=== PATIENT | male | born 1960 | race African-American/Black ===

== ENCOUNTER 2019-08-21 11:45 | Emergency (ER) | payer OTHER | END 2019-08-21 12:37 | disposition home or self-care (01) | LOC: JERFT 11:45 | DX: R07.0 Pain in throat (principal) | CPT/HCPCS: 99283-25 ==

== ENCOUNTER 2021-01-01 12:36 | Inpatient (IN) | payer OTHER ==
[2021-01-01] MEDS ORDERED: CLINDAMYCIN 600MG PREMIX IVPB 600 MG/50 ML BAG IVPB ONE ×2 (13:16→13:48)
[2021-01-01] MEDS ORDERED: DEXAMETHASONE SOD PHOSPHATE 10 MG/1 ML VIAL IVPUSH ONE (13:52)
[2021-01-01] MEDS ORDERED: DEXAMETHASONE SOD PHOSPHATE 10 MG/1 ML VIAL ONE (14:37)
[2021-01-01] MEDS ORDERED: KETOROLAC TROMETHAMINE 30 MG/1 ML VIAL IVPUSH ONE (15:01)
[2021-01-01] MEDS ORDERED: KETOROLAC TROMETHAMINE 30 MG/1 ML VIAL ONE (15:03)
[2021-01-01 15:11] LABS: ALK PHOS 110 U/L (45-117); ANION GAP 10 MMOL/L (8-16); BILIRUBIN,TOTAL 0.7 mg/dL (0.2-1); BLOOD UREA NITROGEN 12.2 mg/dL (7-18); CALCIUM 8.7 mg/dL (8.5-10.1); CHLORIDE 104 mmol/L (98-107); CO2 23 mmol/L (21-32); CREATININE 1.4 mg/dL (0.55-1.3); GLUCOSE,RANDOM 135 mg/dL (74-106); SGOT/AST 33 U/L (15-37); SGPT/ALT 41 U/L (13-61); SODIUM 138 mmol/L (136-145); TOT PROT 8.1 g/dl (6.4-8.2)
[2021-01-01 15:22] LABS: BASO % 0.6 % (0-2.0); EOS % 0.3 % (0-4.5); HEMATOCRIT 52.6 % (35.4-49); HEMOGLOBIN 17.9 GM/dL (11.7-16.9); LYMPH % 10.9 % (8-40); MCH 29.2 pg (25.7-33.7); MCHC 33.9 g/dl (32.0-35.9); MONO % 7.3 % (3.8-10.2); NEUT % 80.9 % (42.8-82.8); PLATELET COUNT 266 10^3/uL (134-434); RBC 6.12 M/mm3 (4.00-5.60); RDW 14.2 % (11.9-15.9); WHITE BLOOD COUNT 9.7 K/mm3 (4.0-10.0)
[2021-01-01 21:05] LABS: URINE COLOR YELLOW
[2021-01-01 21:06] LABS: URINE APPEARANCE CLEAR; URINE BILIRUBIN NEGATIVE (NEGATIVE); URINE GLUCOSE (UA) NEGATIVE (NEGATIVE); URINE KETONE TRACE (NEGATIVE); URINE LEUK ESTERASE NEGATIVE (NEGATIVE); URINE NITRITE NEGATIVE (NEGATIVE); URINE PROTEIN 30 (NEGATIVE); URINE RBC 33.1 /uL (0-23.9); URINE WBC 22.6 /uL (0-25.8)
[2021-01-01 21:07] LABS: EPI CELLS 5.9 /uL (0-25.1); HYALINE CASTS 0.76 /uL (0-3.1); URINE BACTERIA 1.8 /uL (0-1359)
[2021-01-01] MEDS ORDERED: VANCOMYCIN 1 GRAM (PRE-DOCKED) 1,000 MG/250 ML BAG IVPB ONE ×2 (21:45→21:56)
[2021-01-01] MEDS ORDERED: HEPARIN NA (PORCINE) 5,000 UNITS/ML 1ML VIAL ONE (21:55)
[2021-01-01] MEDS ORDERED: PIPERACILLIN/TAZOB 3.375 GM 3.375 GM/50 ML BAG IVPB ONE (21:56)
[2021-01-01] MEDS: HEPARIN NA (PORCINE) 5,000 UNITS/ML 1ML VIAL SQ SCH (22:13)
[2021-01-01 22:17] LABS: URIC ACID 4.5 mg/dL (2.6-7.2)
[2021-01-01] MEDS: PIPERACILLIN/TAZOB 3.375 GM 3.375 GM in DEXTROSE 5%-WATER - 50 ML IVPB SCH (23:43)
[2021-01-02] MEDS: SODIUM CHLORIDE 1,000 ML IV SCH ×2 (00:20→21:06)
[2021-01-02 00:51] VITALS: BMI 27.6
[2021-01-02] MEDS ORDERED: DEXTROSE 5%-WATER - 50 ML IVPB ONE (04:43)
[2021-01-02] MEDS ORDERED: PIPERACILLIN/TAZOBACTAM 3.375 GM VIAL IVPB ONE (04:43)
[2021-01-02] MEDS: HEPARIN NA (PORCINE) 5,000 UNITS/ML 1ML VIAL SQ SCH ×3 (05:05→21:06)
[2021-01-02] MEDS: PIPERACILLIN/TAZOB 3.375 GM 3.375 GM in DEXTROSE 5%-WATER - 50 ML IVPB SCH ×2 (05:05→11:35)
[2021-01-02] MEDS ORDERED: ACETAMINOPHEN 325 MG TABLET (FP) PO PRN (06:30)
[2021-01-02] MEDS: PANTOPRAZOLE 20 MG TABLET PO SCH (09:11)
[2021-01-02] MEDS: amLODIPine BESYLATE 10 MG TABLET (FP) PO SCH (09:11)
[2021-01-02] MEDS: POLYETHYLENE GLYCOL (HEALTHYLAX) 3350 17 GM PACKET PO SCH (09:11)
[2021-01-02 09:28] LABS: BASO % 0.2 % (0-2.0); EOS % 0.1 % (0-4.5); HEMATOCRIT 49.2 % (35.4-49); HEMOGLOBIN 16.6 GM/dL (11.7-16.9); LYMPH % 8.5 % (8-40); MCH 29.3 pg (25.7-33.7); MCHC 33.8 g/dl (32.0-35.9); MEAN CELL VOLUME 86.7 fl (80-96); MEAN PLT VOLUME 7.7 fl (7.5-11.1); MONO % 2.4 % (3.8-10.2); NEUT % 88.8 % (42.8-82.8); PLATELET COUNT 238 10^3/uL (134-434); RBC 5.67 M/mm3 (4.00-5.60); RDW 14.5 % (11.9-15.9); WHITE BLOOD COUNT 11.9 K/mm3 (4.0-10.0)
[2021-01-02 10:00] LABS: ALBUMIN 3.5 g/dl (3.4-5.0); BLOOD UREA NITROGEN 19.9 mg/dL (7-18); CALCIUM 8.7 mg/dL (8.5-10.1)
[2021-01-02] MEDS ORDERED: HYDROCHLOROTHIAZIDE 25 MG TABLET (FP) PO SCH (10:00)
[2021-01-02 10:02] LABS: MAGNESIUM 2.2 mg/dL (1.8-2.4)
[2021-01-02 10:03] LABS: CREATININE 1.5 mg/dL (0.55-1.3)
[2021-01-02 10:05] LABS: BILIRUBIN,TOTAL 0.8 mg/dL (0.2-1); TOT PROT 7.3 g/dl (6.4-8.2)
[2021-01-02] MEDS: VANCOMYCIN 1 GM in D5W (PRE-DOCKED) 1,000 MG/250 ML IVPB SCH ×2 (11:35→11:36)
[2021-01-02] MEDS: BICTEGRAV/EMTRICIT/TENOFOV (BIKTARVY) 50-200-25 MG TABLET PO SCH (12:25)
[2021-01-02] MEDS ORDERED: AMPICILLIN NA/SULBACTAM NA 3 GM VIAL ONE (17:36)
[2021-01-02] MEDS ORDERED: SODIUM CHLORIDE 100 ML IVPB ONE (17:36)
[2021-01-02] MEDS: AMPICILLIN NA/SULBACTAM NA 3 GM in SODIUM CHLORIDE 100 ML IVPB SCH (19:13)
[2021-01-02] MEDS: ATORVASTATIN CA 20 MG TABLET (FP) PO SCH (21:06)
[2021-01-03] MEDS ORDERED: AMPICILLIN NA/SULBACTAM NA 3 GM VIAL ONE ×2 (01:09→08:55)
[2021-01-03] MEDS ORDERED: SODIUM CHLORIDE 100 ML IVPB ONE ×2 (01:09→08:55)
[2021-01-03] MEDS: AMPICILLIN NA/SULBACTAM NA 3 GM in SODIUM CHLORIDE 100 ML IVPB SCH ×2 (01:17→09:01)
[2021-01-03] MEDS: SODIUM CHLORIDE 1,000 ML IV SCH ×2 (05:36→16:48)
[2021-01-03] MEDS: HEPARIN NA (PORCINE) 5,000 UNITS/ML 1ML VIAL SQ SCH ×3 (05:39→21:22)
[2021-01-03] MEDS ORDERED: SODIUM CHLORIDE 1,000 ML IV SCH (08:30)
[2021-01-03 08:49] LABS: BASO % 0.2 % (0-2.0); HEMATOCRIT 48.4 % (35.4-49); HEMOGLOBIN 16.1 GM/dL (11.7-16.9); LYMPH % 10.7 % (8-40); MCH 28.8 pg (25.7-33.7); MCHC 33.4 g/dl (32.0-35.9); MEAN CELL VOLUME 86.3 fl (80-96); MEAN PLT VOLUME 8.3 fl (7.5-11.1); MONO % 5.4 % (3.8-10.2); NEUT % 83.7 % (42.8-82.8); PLATELET COUNT 260 10^3/uL (134-434); RBC 5.61 M/mm3 (4.00-5.60); RDW 14.3 % (11.9-15.9); WHITE BLOOD COUNT 15.3 K/mm3 (4.0-10.0)
[2021-01-03] MEDS: PANTOPRAZOLE 20 MG TABLET PO SCH (09:01)
[2021-01-03] MEDS: POLYETHYLENE GLYCOL (HEALTHYLAX) 3350 17 GM PACKET PO SCH (09:01)
[2021-01-03] MEDS: amLODIPine BESYLATE 10 MG TABLET (FP) PO SCH (09:01)
[2021-01-03 09:17] LABS: ALBUMIN 3.4 g/dl (3.4-5.0); BLOOD UREA NITROGEN 18.5 mg/dL (7-18); CALCIUM 8.5 mg/dL (8.5-10.1)
[2021-01-03 09:20] LABS: CREATININE 1.3 mg/dL (0.55-1.3)
[2021-01-03 09:23] LABS: BILIRUBIN,TOTAL 0.5 mg/dL (0.2-1)
[2021-01-03] MEDS ORDERED: PT OWN MED DRAWER 7, Y5N ONE (10:29)
[2021-01-03] MEDS: BICTEGRAV/EMTRICIT/TENOFOV (BIKTARVY) 50-200-25 MG TABLET PO SCH (10:32)
[2021-01-03] MEDS ORDERED: DEXTROSE 5%-WATER 100 ML IVPB ONE (14:31)
[2021-01-03] MEDS: CEFTRIAXONE 2 GM in DEXTROSE 5%-WATER 2 GM/100 ML BAG IVPB SCH (14:36)
[2021-01-03] MEDS: CLINDAMYCIN 600MG PREMIX IVPB 600 MG/50 ML BAG IVPB SCH (17:03)
[2021-01-03] MEDS: THYROID PORK 90 MG PO SCH (20:01)
[2021-01-03] MEDS: ATORVASTATIN CA 20 MG TABLET (FP) PO SCH (21:22)
[2021-01-03] MEDS: ACETAMINOPHEN 325 MG TABLET (FP) PO PRN (23:19)
[2021-01-04] MEDS: CLINDAMYCIN 600MG PREMIX IVPB 600 MG/50 ML BAG IVPB SCH ×3 (01:19→17:14)
[2021-01-04] MEDS: HEPARIN NA (PORCINE) 5,000 UNITS/ML 1ML VIAL SQ SCH ×3 (05:05→21:15)
[2021-01-04] MEDS: THYROID PORK PO SCH (06:04)
[2021-01-04] MEDS: SODIUM CHLORIDE 1,000 ML IV SCH (06:07)
[2021-01-04 08:57] LABS: BASO % 0.5 % (0-2.0); EOS % 0.6 % (0-4.5); HEMATOCRIT 52.5 % (35.4-49); HEMOGLOBIN 17.8 GM/dL (11.7-16.9); LYMPH % 33.1 % (8-40); MCH 29.8 pg (25.7-33.7); MCHC 33.9 g/dl (32.0-35.9); MEAN CELL VOLUME 87.8 fl (80-96); NEUT % 57.8 % (42.8-82.8); PLATELET COUNT 252 10^3/uL (134-434); RBC 5.97 M/mm3 (4.00-5.60); RDW 14.1 % (11.9-15.9)
[2021-01-04 09:21] LABS: ALBUMIN 3.5 g/dl (3.4-5.0); BLOOD UREA NITROGEN 12.6 mg/dL (7-18); CALCIUM 8.7 mg/dL (8.5-10.1); MAGNESIUM 2.1 mg/dL (1.8-2.4)
[2021-01-04 09:23] LABS: CREATININE 1.2 mg/dL (0.55-1.3); PHOSPHOROUS 2.8 mg/dL (2.5-4.9)
[2021-01-04 09:24] LABS: BILIRUBIN,TOTAL 0.5 mg/dL (0.2-1); TOT PROT 7.4 g/dl (6.4-8.2)
[2021-01-04] MEDS ORDERED: DEXTROSE 5%-WATER 100 ML IVPB ONE (09:57)
[2021-01-04] MEDS ORDERED: PT OWN MED DRAWER 7, Y5N ONE (09:57)
[2021-01-04] MEDS ORDERED: THYROID PORK PO SCH (10:00)
[2021-01-04] MEDS ORDERED: THYROID 60 MG TABLET PO SCH (10:00)
[2021-01-04] MEDS: PANTOPRAZOLE 20 MG TABLET PO SCH (10:01)
[2021-01-04] MEDS: amLODIPine BESYLATE 10 MG TABLET (FP) PO SCH (10:01)
[2021-01-04] MEDS: POLYETHYLENE GLYCOL (HEALTHYLAX) 3350 17 GM PACKET PO SCH (10:01)
[2021-01-04] MEDS: BICTEGRAV/EMTRICIT/TENOFOV (BIKTARVY) 50-200-25 MG TABLET PO SCH (10:02)
[2021-01-04] MEDS: ACETAMINOPHEN 325 MG TABLET (FP) PO PRN ×2 (10:27→21:14)
[2021-01-04] MEDS: CEFTRIAXONE 2 GM in DEXTROSE 5%-WATER 2 GM/100 ML BAG IVPB SCH (10:28)
[2021-01-04 13:12] LABS: RETICULOCYTES 0.74 % (0.5-1.5)
[2021-01-04] MEDS ORDERED: SODIUM CHLORIDE 1,000 ML IV SCH (18:21)
[2021-01-04] MEDS: ATORVASTATIN CA 20 MG TABLET (FP) PO SCH (21:15)
[2021-01-05] MEDS: CLINDAMYCIN 600MG PREMIX IVPB 600 MG/50 ML BAG IVPB SCH ×3 (01:20→18:50)
[2021-01-05] MEDS: THYROID PORK PO SCH ×2 (06:13→06:36)
[2021-01-05] MEDS: HEPARIN NA (PORCINE) 5,000 UNITS/ML 1ML VIAL SQ SCH ×3 (06:13→21:09)
[2021-01-05 07:48] LABS: BASO % 0.9 % (0-2.0); EOS % 2.2 % (0-4.5); HEMATOCRIT 52.4 % (35.4-49); HEMOGLOBIN 17.5 GM/dL (11.7-16.9); LYMPH % 32.3 % (8-40); MCH 29.1 pg (25.7-33.7); MCHC 33.4 g/dl (32.0-35.9); MEAN CELL VOLUME 86.9 fl (80-96); MEAN PLT VOLUME 7.8 fl (7.5-11.1); MONO % 8.2 % (3.8-10.2); NEUT % 56.4 % (42.8-82.8); PLATELET COUNT 262 10^3/uL (134-434); RBC 6.03 M/mm3 (4.00-5.60); RDW 14.4 % (11.9-15.9); WHITE BLOOD COUNT 7.5 K/mm3 (4.0-10.0)
[2021-01-05 08:10] LABS: CALCIUM 8.8 mg/dL (8.5-10.1)
[2021-01-05 08:11] LABS: ALBUMIN 3.4 g/dl (3.4-5.0); BLOOD UREA NITROGEN 12.1 mg/dL (7-18); MAGNESIUM 2.2 mg/dL (1.8-2.4)
[2021-01-05 08:14] LABS: CREATININE 1.2 mg/dL (0.55-1.3); PHOSPHOROUS 3.3 mg/dL (2.5-4.9)
[2021-01-05 08:15] LABS: BILIRUBIN,TOTAL 0.4 mg/dL (0.2-1); TOT PROT 7.2 g/dl (6.4-8.2)
[2021-01-05] MEDS ORDERED: DEXTROSE 5%-WATER 100 ML IVPB ONE (09:20)
[2021-01-05] MEDS ORDERED: PT OWN MED DRAWER 7, Y5N ONE (09:20)
[2021-01-05] MEDS: BICTEGRAV/EMTRICIT/TENOFOV (BIKTARVY) 50-200-25 MG TABLET PO SCH (09:24)
[2021-01-05] MEDS: CEFTRIAXONE 2 GM in DEXTROSE 5%-WATER 2 GM/100 ML BAG IVPB SCH (09:24)
[2021-01-05] MEDS: PANTOPRAZOLE 20 MG TABLET PO SCH (09:24)
[2021-01-05] MEDS: POLYETHYLENE GLYCOL (HEALTHYLAX) 3350 17 GM PACKET PO SCH (09:24)
[2021-01-05] MEDS: amLODIPine BESYLATE 10 MG TABLET (FP) PO SCH (09:24)
[2021-01-05] MEDS: ATORVASTATIN CA 20 MG TABLET (FP) PO SCH (21:09)
[2021-01-06] MEDS: CLINDAMYCIN 600MG PREMIX IVPB 600 MG/50 ML BAG IVPB SCH ×3 (01:12→18:07)
[2021-01-06] MEDS: HEPARIN NA (PORCINE) 5,000 UNITS/ML 1ML VIAL SQ SCH ×2 (05:29→13:42)
[2021-01-06] MEDS: THYROID PORK PO SCH (06:21)
[2021-01-06] MEDS ORDERED: PT OWN MED DRAWER 7, Y5N ONE ×3 (07:42→19:27)
[2021-01-06 09:05] LABS: BASO % 0.8 % (0-2.0); HEMATOCRIT 51.4 % (35.4-49); HEMOGLOBIN 17.5 GM/dL (11.7-16.9); LYMPH % 37.6 % (8-40); MCH 29.6 pg (25.7-33.7); MCHC 34.1 g/dl (32.0-35.9); MEAN CELL VOLUME 86.9 fl (80-96); MEAN PLT VOLUME 8.3 fl (7.5-11.1); MONO % 7.4 % (3.8-10.2); NEUT % 50.2 % (42.8-82.8); PLATELET COUNT 269 10^3/uL (134-434); RBC 5.91 M/mm3 (4.00-5.60); RDW 14.2 % (11.9-15.9); WHITE BLOOD COUNT 5.7 K/mm3 (4.0-10.0)
[2021-01-06 09:26] LABS: CALCIUM 8.5 mg/dL (8.5-10.1)
[2021-01-06 09:27] LABS: ALBUMIN 3.3 g/dl (3.4-5.0); BLOOD UREA NITROGEN 13.8 mg/dL (7-18); MAGNESIUM 2.2 mg/dL (1.8-2.4)
[2021-01-06 09:30] LABS: CREATININE 1.2 mg/dL (0.55-1.3); PHOSPHOROUS 2.9 mg/dL (2.5-4.9)
[2021-01-06 09:31] LABS: BILIRUBIN,TOTAL 0.4 mg/dL (0.2-1); TOT PROT 6.9 g/dl (6.4-8.2)
[2021-01-06] MEDS: POLYETHYLENE GLYCOL (HEALTHYLAX) 3350 17 GM PACKET PO SCH (09:43)
[2021-01-06] MEDS: PANTOPRAZOLE 20 MG TABLET PO SCH (09:43)
[2021-01-06] MEDS: BICTEGRAV/EMTRICIT/TENOFOV (BIKTARVY) 50-200-25 MG TABLET PO SCH (09:43)
[2021-01-06] MEDS: amLODIPine BESYLATE 10 MG TABLET (FP) PO SCH (09:43)
[2021-01-06] MEDS ORDERED: DEXTROSE 5%-WATER 100 ML IVPB ONE (11:24)
[2021-01-06] MEDS: CEFTRIAXONE 2 GM in DEXTROSE 5%-WATER 2 GM/100 ML BAG IVPB SCH (11:33)
[2021-01-06 17:43] VITALS: BP 141/91; PULSE 73; TEMP 98.2
== END 2021-01-06 19:30 | disposition home or self-care (01) | DRG 115 ==
LOC: JER 12:36 → JERBED 19:16 → J8W 01-02 00:21
PROVIDERS: ADMIT Internal Medicine; ATTEND Internal Medicine
DX: K11.21 Acute sialoadenitis (principal); D75.1 Secondary polycythemia; N17.9 Acute kidney failure, unspecified; I10 Essential (primary) hypertension; Z21 Asymptomatic human immunodeficiency virus [HIV] infection status; R91.1 Solitary pulmonary nodule; E05.00 Thyrotoxicosis with diffuse goiter without thyrotoxic crisis or storm; N28.9 Disorder of kidney and ureter, unspecified; K80.80 Other cholelithiasis without obstruction
CPT/HCPCS: 36415; 70491-TC; 71250-TC; 74018-TC-FY; 76700-TC; 80053; 81003; 82550; 82553; 83735; 84100; 84439; 84443; 84550; 85025; 85045; 87040; 87070; 87086; 87205; 87522; 93005; 93010; 99285-25; C9803; J1100; J1644; Q9967; U0003; U0005